=== PATIENT | female | born 1940 | race Caucasian/White ===

== ENCOUNTER 2022-05-31 08:58 | Outpatient (CLI) | payer MEDICARE, BC, SELFPAY ==
[2022-05-31 09:59] LABS: Cholesterol* 154 mg/dL (90-199); HDL Cholesterol* 75 mg/dL (>=50); LDL Cholesterol Calculated 67 mg/dL (<100); Triglycerides* 60 mg/dL (40-149)
== END 2022-05-31 08:59 | disposition home or self-care (01) ==
PROVIDERS: PCP Internal Medicine; Visit Provider Internal Medicine
DX: E78.5 Hyperlipidemia, unspecified (principal); I10 Essential (primary) hypertension
CPT/HCPCS: 80061

== ENCOUNTER 2023-02-21 07:20 | Outpatient (CLI) | payer MEDICARE, BC, SELFPAY | END 2023-02-21 07:21 | disposition home or self-care (01) | LOC: NFLDREF 22:10 | PROVIDERS: PCP Internal Medicine; Referring Provider Internal Medicine; Visit Provider Internal Medicine | DX: I10 Essential (primary) hypertension (principal); E78.9 Disorder of lipoprotein metabolism, unspecified; M85.80 Other specified disorders of bone density and structure, unspecified site | CPT/HCPCS: 80048; 80061; 82306 ==

== ENCOUNTER 2023-07-26 10:40 | Outpatient (CLI) | payer MEDICARE, BC, SELFPAY ==
[2023-07-26 10:46] VITALS: BP 134/74; PULSE 73; RESP 16; O2SAT 95
[2023-07-26] MEDS: TETRACAINE 0.5% OPHTH 1 DROP EYE-LEFT ×3 (10:49→11:32)
[2023-07-26] MEDS: BRIMONIDINE TARTRATE 0.2% OPHTH 1 DROP EYE-LEFT ×2 (10:50→11:42)
--- NOTE | 2023-07-26 12:02 | P.OPTPRC_ITS ---
Procedure Note Date of procedure: 07/26/23 Will [facility] bill your pro fee for this procedure?: Yes Procedure Description: SURGEON: Zee Nails MD PREOPERATIVE DIAGNOSIS: Posterior capsular opacity, left eye POSTOPERATIVE DIAGNOSIS: Posterior capsular opacity, left eye PROCEDURE: YAG laser capsulotomy, left eye ANESTHESIA: Topical. ESTIMATED BLOOD LOSS: None PATHOLOGY SPECIMEN: None COMPLICATIONS: None INDICATIONS: See consult note for details. The risks, benefits and alternatives of the procedure were explained to the patient, who elected to proceed and signed informed consent to do so. PROCEDURE: The patient was brought to the pre-holding area where the left eye was identified as the operative eye. I placed my initials above this eye. The patient received 2 sets of 1 drop of 0.5% tetracaine and 1 drop of 1% tropicamide. They also received 1 drop of 0.2% brimonidine. They received 1 drop of 0.5% tetracaine immediately prior to bringing them back for the procedure. The patient was then brought to the procedure room where the left eye was again identified as the operative eye. A YAG Jeff capsulotomy lens was placed on the eye. The laser was administered using a total number of 14 shots with an energy of 2.4 mJ per shot for a total energy of 34 mJ. The patient tolerated the procedure well. DISPOSITION: The patient was taken back to the pre-holding area and given 1 drop of 0.2% brimonidine in the left eye. They were discharged to home in stable condition. The patient was instructed to call me or go to the emergency department with any sudden change, including dramatic loss of vision, severe pain in the eye or eyebrow region, nausea, or vomiting. The patient was instructed to use the 0.2% brimonidine 1 drop 2 times a day in the left eye for 1 week. The patient will follow up in the clinic in 1-2 weeks
== END 2023-07-26 11:43 | disposition home or self-care (01) ==
LOC: EYE PRC 10:40
PROVIDERS: PCP Internal Medicine; Visit Provider Ophthalmology
DX: H26.9 Unspecified cataract (principal)
CPT/HCPCS: 66821; A9270

== ENCOUNTER 2024-03-05 07:25 | Outpatient (CLI) | payer MEDICARE, BC, SELFPAY ==
--- OUTSIDE RECORDS SUMMARY | 2024-03-06 09:28 | XMS_ITS | Clinical Summary ---
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 30 tablet 0 07/31/2012 Active aspirin (ECOTRIN) 81 mg enteric coated tablet Take 1 tablet by mouth once daily. 0 09/03/2015 Active Active Problems Problem Noted Date Diagnosed Date Colon polyp 07/31/2012 Overview: Colonoscopy 07/2012 polyps repeat in 3 years Colonoscopy 08/2015 severe diverticular disease, difficult to pass scope, recommend CT colonography in the future Personal history of colonic polyps 07/31/2012 Diverticulosis of colon (without mention of hemo rrhage) 07/31/2012 Social History Tobacco Use Types Packs/Day Years Used Date Smoking Tobacco: Former Comments:quit twenty years a go Alcohol Use Standard Drinks/Week Comments Not Asked 0 (1 standard drink = 0.6 oz pur e alcohol) Sex and Gender Information Value Date Recorded Sex Assigned at Not on file Gender Identity Not on file Sexual Orientation Not on file Obstetrics History Last Filed Vital Signs Vital Sign Reading Time Taken Comments Blood Pressure 121/67 09/03/2015 11:42 AM 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 Pulse 63 09/03/2015 11:42 AM 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 Temperature - - Respiratory Rate - - Oxygen Saturation 99% 09/03/2015 11:42 AM 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
--- OUTSIDE RECORDS SUMMARY | 2024-03-06 09:28 | XMS_ITS ---
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 Procedure Estimated Blood Loss Check Surgery Details section. Procedure Findings Check Surgery Details section. Procedure Specimens Taken Check Surgery Details section.
--- OUTSIDE RECORDS SUMMARY | 2024-03-06 09:28 | XMS_ITS | Referral Summary ---
Author Name Unknown Organization [facility] Address [address] [place] [address] Care Team Providers Care Health Care Legal Assistant Name Role Phone Elsewhere, Pcp Primary Care Provider Unavailabl e Source Comments Patient records contain information from all sites at [facility]. For routine questions regarding patient records, call [phone] during business hours, M-F 8:00 AM - 5:00 PM Central Time. Record requests for emergency care only can be directed to [phone] at any time.[facility] Allergies Active Allergy Reactions Criticality Noted Date Comments Adhesive Tape-Silicones Rash Low 01/03/2019 Iodinated Contrast Media Renal Failure,Cough,Hives (Reselect Reaction) 07/28/2009 Allergic to contrast dye for Cat scan Gadodiamide Hives (Reselect Reaction) Medium 02/18/2020 Medications Medication Sig Dispensed Refills Start Date End Date Status losartan-hydroCHLOROt hiazide (HYZAAR) 50-12.5 mg per tablet Take 1 tablet by mouth daily. 3 03/27/2019 Active alendronate (FOSAMAX) 35 mg tablet Take 35 mg by mouth once a week. On Saturdays. 3 05/06/2019 Active calcium carbonate-vitamin D3 500 mg-10 mcg (400 unit) tablet Take 1 tablet by mouth daily. Active zzjdqkktyyur-Hc-qtak- minerals tablet Take 1 tablet by mouth daily. Active sennosides-docusate sodium (SENOKOT-S) 8.6-50 mg per tablet Take 1 tablet by mouth 2 (two) times a day. Take while requiring narcotics. Hold for diarrhea. 07/19/2021 Active ibuprofen (ADVIL,MOTRIN) 200 mg tablet Take 1 tablet (200 mg total) by mouth daily as needed for pain. HOLD for 2 doays after surgery 07/20/2021 Active sennosides-docusate sodium (SENOKOT-S) 8.6-50 mg per tablet Take 1 tablet by mouth 2 (two) times a day. Use while taking oxycodone 01/31/2022 Active atorvastatin (LIPITOR) 20 mg tablet Take 20 mg by mouth every other day. 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 Trigger Finger Thumb Right 06/29/2019 Osteoporosis 05/30/2019 Cancer Breast Personal History 05/30/2019 Graves Disease Personal History 05/30/2019 Polyp Colon Personal History 07/31/2012 Hypertension 05/29/2009 Polyp Colon 05/29/2009 Resolved Problems Problem Noted Date Diagnosed Date Resolved Date Polymyalgia Rheumatica 05/30/201905/30 Immunizations Name Administration Dates Next Due H1N1 All Forms 09/17/2009 Td (Adult), adsorbed 07/18/2005 Social History Tobacco Use Types Packs/Day Years Used Date Smoking Tobacco: Never Smokeless Tobacco: Never Alcohol Use Standard Drinks/Week Comments Yes 0 (1 standard drink = 0.6 oz pur e alcohol) rarely Humiliation, Afraid, Rape, and Kick questionnair e Answer Date Recorded Within the last year, have y ou been afraid of your partner or ex-partner? No 01/18/2022 Within the last year, have y ou been humiliated or emotionally abused in other ways by your partner or ex-partner? No Within the last year, have y ou been kicked, hit, slapped, or otherwise physically hurt by your partner or ex-partner? No 01/18/2022 Within the last year, have y ou been raped or forced to have any kind of sexual activity by your partner or ex-partner? No 01/18/2022 Social Connection and Isolat ion Panel [NHANES] Answer Date Recorded In a typical week, how many times do you talk on the phone with family, friends, or neighbors? Once a week 01/18/2022 How often do you get togethe r with friends or relatives? Once a week 01/18/2022 How often do you attend chur ch or mormon services? Never 01/18/2022 Do you belong to any clubs o r organizations such as jehovah's witness groups, unions, fraternal or athletic groups, or school groups? Yes 01/18/2022 How often do you attend meet ings of the clubs or organizations you belong to? More than 4 times per year 01/18/2022 Are you , , di vorced, , never , or living with a partner? 01/18/2022 AUDIT-C Answer Date Recorded Q1: How often do you have a drink containing alc ohol? Monthly or less 01/18/2022 Q2: How many drinks containi ng alcohol do you have on a typical day when you are drinking? 1 or 2 01/18/2022 Q3: How often do you have si x or more drinks on one occasion? Never 01/18/2022 Overall Financial Resource Strain (CARDIA) Answe r Date Recorded How hard is it for you to pa y for the very basics like food, housing, medical care, and heating? Not hard at all 01/18/2022 [facility] - Occupational Stress Questionnaire Answer Date Recorded Do you feel stress - tense, restless, nervous, or anxious, or unable to sleep at night because your mind is troubled all the time - these days? Only a little 01/18/2022 Exercise Vital Sign Answer Date Recorde d On average, how many days pe r week do you engage in moderate to strenuous exercise (like a brisk walk)? 7 days 01/18/2022 On average, how many minutes do you engage in exercise at this level? 60 min 01/18/2022 Hunger Vital Sign Answer Date Recorded Within the past 12 months, y ou worried that your food would run out before you got the money to buy more. Never true 01/19/20 Within the past 12 months, t he food you bought just didn't last and you didn't have money to get more. Never true 01/18/2022 PRAPARE - Transportation Answer Date Re corded In the past 12 months, has l ack of transportation kept you from medical appointments or from getting medications? No 12/29 In the past 12 months, has l ack of transportation kept you from meetings, work, or from getting things needed for daily living? No 01/18/2022 Housing Stability Vital Sign Answer Benito e Recorded In the last 12 months, was t here a time when you were not able to pay the mortgage or rent on time? No 01/18/2022 In the last 12 months, how many places have you lived? 1 01/18/2022 In the last 12 months, was t here a time when you did not have a steady place to sleep or slept in a custodial (including now)? No 01/18/2022 Nutrition Answer Date Recorded Nutrition: EVOO Fat Source No 01/18 On average, how many serving s of fruits and vegetables do you eat per day (serving size is equal to 1 cup or approximately the size of a tennis ball)? 2-3 01/18/2022 Dental Answer Date Recorded Dental: Regular Dentist Yes 12/30/19 Employment Answer Date Recorded Employment status Retired 01/18/2022 Education Answer Date Recorded What is the highest level of school you have completed or the highest degree you have received? Bachelor's degree (e.g., BA, AB, BS) 05/23/2019 Sex and Gender Information Value Date Recorded Sex Assigned at Female 07/24/2021 8:45 AM CDT Gender Identity Female 06/25/2019 3:37 PM CDT Sexual Orientation Straight 06/25/2019 3: 37 PM CDT Last Filed Vital Signs Vital Sign Reading Time Taken Comments Blood Pressure 133/61 01/31/2022 3:57 PM CDT Pulse 72 01/31/2022 3:57 PM CDT Temperature 36.9 ??C (98.42 ??F) 01/31/2022 3:17 PM C DT Respiratory Rate 16 01/31/2022 3:17 PM CDT Oxygen Saturation 98% 01/31/2022 3:17 PM CDT Inhaled Oxygen Concentration - - Weight 62.2 kg (137 lb 2 oz) 06/09/2022 8:12 AM CDT Height 162.2 cm (5' 3.86) 06/09/2022 8:12 AM CD T Body Mass Index 23.64 06/09/2022 8:12 AM CDT Plan of Treatment Not on file Medical Devices Implanted Type Area Superintendent Track Device Identifier Shelf Expiration Date Model / Serial / Lot Saline Breast Implant Implanted:Qty: 1 on 01/31/2022 by Carlyn Cornelius M.D., Ph.D. at [facility] Breast Implant [employer] [id number] / [id number] Saline Breast Implant Implanted:Qty: 1 on 01/31/2022 by Carlyn Cornelius M.D., Ph.D. at [facility] Breast Implant [employer] [id number] / [id number] Explanted Type Area Superintendent Track Device Identifier Shelf Expiration Date Model / Serial / Lot Breast Implant Explanted:Qty : 1 on 01/31/2022 at [facility] Breast Implant Right: Breast Exp Brst Ntr Geno Mxt Rnd 300cc - [id number] - [id number] Implanted:Qty : 1 on 07/19/2021 by Carlyn Cornelius M.D., Ph.D. at [facility] Explanted:Qty : 1 on 01/31/2022 at [facility] Breast Implant Left: Breast [employer] 02/18/2025 [id number] 1-[id number] / [id number] / Procedures Procedure Name Priority Date/Time Associated Diagnosis Comments COLONOSCOPY Routine 03/09/2021 10:45 AM CDT Polyp Colon Personal History CT COLONOGRAPHY SCREENING WITHOUT IV CONTRAST RAD - Routine (most inpatients and all outpatients) 03/09/2021 7:55 AM CDT Procedure And Treatment Not Carried Out For Other Reasons Polyp Colon Personal History CREATININE WITH EGFR, S/P Routine 03/08/2021 11:06 AM CDT Polyp Colon Personal History from Last 3 Months or Most Recently Relevant to Health Maintenance Results * Colonoscopy (03/09/2021 10:45 AM CDT) 03/09/2021 10:4 5 AM CDT Impressions [facility] - 03/09/2021 11:41 AM CDT Post-op Diagnoses: ? - Preparation of the colon was fair. ? - Diverticulosis in the entire examined colon. No rectosigmoid polyp ? noted on multiple passes through the area. ? - One 2 mm polyp in the cecum, removed with a cold biopsy forceps. ? Resected and retrieved. Narrative [facility] - 03/09/2021 11:41 AM CDT [facility] GI GI Patient Name: Mandy Bazan Date of : 1940 Age: 80 Gender: Female Procedure Date: 03/09/2021 Procedure: ? Colonoscopy Providers: ? Lawrence Mancilla MD Referring Provider: ?Ciaar Perez MD Pre-op Diagnoses: ?Abnormal virtual colonoscopy Recommendation: ? - Await pathology results. Propofol for future exams Findings: ? Multiple diverticula were found in the entire colon. Redundent ? rectosigmoid junction. No polyp noted on multiple passes. ? A 2 mm polyp was found in the cecum. The polyp was sessile. The polyp ? was removed with a cold biopsy forceps. Resection and retrieval were ? complete. Procedural Details: ? The patient was seen, evaluated, history reviewed, airway and heart-lung ? exams were performed by licensed provider and were satisfactory for ? planned level of sedation care. ? The risks, benefits and alternatives for the procedure and sedation were ? discussed and informed consent was obtained. A procedural pause was ? conducted in the presence of assisting personnel to verify the correct ? patient identity and procedure to be performed. Throughout the ? procedure, the patient's blood pressure, pulse, and oxygen saturations ? were monitored continuously. The Pediatric Colonoscope was introduced ? under direct vision through the anus and advanced to the cecum, ? identified by appendiceal orifice and ileocecal valve. The colonoscopy ? was performed without difficulty. The patient tolerated the procedure ? fairly well. The quality of the bowel preparation was fair. The quality ? of the bowel preparation was evaluated using the BBPS ([place] Bowel ? Preparation Scale) with scores of: Right Colon = 1 (portion of mucosa ? seen, but other areas not well seen due to staining, residual stool ? and/or opaque liquid), Transverse Colon = 2 (minor amount of residual ? staining, small fragments of stool and/or opaque liquid, but mucosa seen ? well) and Left Colon = 2 (minor amount of residual staining, small ? fragments of stool and/or opaque liquid, but mucosa seen well). The ? total BBPS score equals 5. The quality of the bowel preparation was fair. Estimated Blood Loss: ?Estimated blood loss was minimal. Complications: ? No immediate complications. Sedation: ? Moderate (conscious) sedation was administered by the endoscopy nurse ? and supervised by the endoscopist. The following parameters were ? monitored: oxygen saturation, heart rate, blood pressure, and response ? to care. Total physician intraservice time was 37 minutes. Attending Participation: I personally performed the entire procedure. Lawrence Mancilla MD 03/09/2021 11:40:57 AM This report has been signed electronically. Number of Addenda: 0 Ciara Perez M.D. GI PROCEDURE ORDERAB LES COLÓN PROVATION NA * CT Colonography Screening without IV Contrast (03/09/2021 7:55 AM CDT) Anatomical Region Laterality Modality Abdomen, Pelvis, Abdominal R ST LOS, Abdominal ARZ LOS, Abdominal FLA LOS N/A Computed Tomograp hy, Computed Tomography Impressions 03/09/2021 8:58 AM CDT Nodular fold at the rectosigmoid junction which could represent a 12 mm polyp. The case was discussed with Dr. Olivares who requested that the patient go to same day colonoscopy given the distal location of this possible polyp. Narrative 03/09/2021 8:58 AM CDT EXAM: ??CT COLONOGRAPHY SCREENING WITHOUT IV CONTRAST FINDINGS: COLONIC FINDINGS: ??Colon exam is POSITIVE: ??There is a 12 mm area of nodularity on one of these results at the rectosigmoid junction which could represent a polyp. Otherwise no polyps or masses throughout the remainder of the colon. Colonic diverticulosis. EXTRACOLONIC FINDINGS: INCIDENTAL: ?? Bilateral breast implants. The left implant is collapsed and contains air. Degenerative changes in the lumbar spine and sacroiliac joints. TECHNIQUE: ??Low-dose CT images performed in multiple positions after colonic insufflation. Preparation: ??Satisfactory Dose: ??Low IV contrast material: ??Not administered Glucagon: ??1mg administered subcutaneously Complications: ??None Exam Codes: ??C2; E2 Ciara Perez M.D. IMG CT PROCEDURES * (ABNORMAL) Creatinine with Estimated GFR (03/08/2021 11:06 AM CDT) Creatinine 1.02 0.59 - 1.04 mg/dL 03/08/2021 11:39 AM CDT CNFL eGFR-Black/Afric an Lithuanian 60 >=60 mL/min/BSA 03/08/2021 11:39 AM CDT [facility] Comment: ----ADDITIONAL INFORMATION---- Estimated GFR calculated using the 2009 CKD_EPI creatinine equation. eGFR Non-Black/Angi n Lithuanian 52(L) >=60 mL/min/BSA 03/08/2021 11:39 AM CDT [facility] Comment: ----ADDITIONAL INFORMATION---- Estimated GFR calculated using the 2009 CKD_EPI creatinine equation. Blood (Blood, Venous) 03/08/2021 11:06 AM CDT 03/08/2021 11:06 AM CDT Ciara Perez M.D. 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 Expl anation Advance Directives 06/26/2023 12:18 PM Jesús Stokes rperFcatrachitatequila Bazan HCPOA/ADVOCATE/AGENT/R EPRESENTATIVE/SURROGAT E Advance Directives 01/31/2022 9:24 AM HCPOA /ADVOCATE/AGENT/R EPRESENTATIVE/SURROGAT E * Full Code (Latest Code Status on File) Date Activated Date Inactivated Comments 07/19/2021 6:03 PM 07/20/2021 7:08 PM Question Answer Comments Full Code: Not Discussed Due to: Not medically appropriate Healthcare Agents on File Name Relationship Healthcare Agent Relationship Communication Jesús Bazan Son Health Care Agent Harrison Bazan Son First Alternate Health Care Agent [email or web address] Care Teams Health Care Legal Assistant Relationship Specialty Start Date End Date Elsewhere, Pcp PCP - General Internal Medicine 01/31/22
--- OUTSIDE RECORDS SUMMARY | 2024-03-06 09:28 | XMS_ITS | Clinical Summary ---
Author Name Unknown Organization [facility] Address [address] [place] [address] Care Team Providers Care Crew Scheduler Name Role Phone Elsewhere, Pcp Primary Care Provider Unavailabl e Source Comments Patient records contain information from all sites at [facility]. For routine questions regarding patient records, call [phone] during business hours, M-F 8:00 AM - 5:00 PM Central Time. Record requests for emergency care only can be directed to [phone] at any time.[facility] Allergies Active Allergy Reactions Criticality Noted Date [...] Take 1 tablet by mouth daily. Active crzuzgmmkfoy-Xp-eraa- minerals tablet Take 1 tablet by mouth [...] often do you attend chur ch or yarsanism services? Never 01/18/2022 Do you belong to any clubs o r organizations such as zoroastrianism groups, unions, fraternal or athletic groups, or [...] and heating? Not hard at all 01/18/2022 [facility] - [...] place to sleep or slept in a [place] health care facility (including now)? No 01/18/2022 Nutrition Answer Date [...] 06/09/2022 8:12 AM CDT Plan of Treatment Health Maintenance Due Date Last Done Comments Office Visit for Blood Press ure Check / Re-check 1940 Potassium Level 1940 Sodium Level 1940 Pneumococcal vaccine (65+ ye ars) (2 of 2 - PPSV23 or PCV20) 10/05/2016 10/05/2015 Creatinine Level (Kidney Fun ction Test) 03/08/2022 03/08/2021, 09/25/2020 Depression Screening (Annual PHQ-2) 10/30/2023 Fall Risk Screen (Annual) 10/30/2023 COVID-19 Vaccine (2022- 4 season) 2023 08/24/2023, 03/21/2023, 08/04/2022, Additional history exists DTaP,Tdap,and Td Vaccines (3 - Td or Tdap) 02/22/2031 02/22/2021, 06/01/2011, 05/19/2010, Additional history exists Zoster Vaccines Completed 11/12/2019, 08/21/2019 CT Colonography Discontinued 03/09/2021 Colonoscopy Discontinued 03/09/2021, 03/09/2021 Colorectal Cancer Surveillance Discontinued Influenza Vaccine Completed 09/06/2023, , 08/12/2021, Additional history exists Cologuard Discontinued Medical Devices Implanted Type Area Gaming Surveillance Observer Device Identifier Shelf Expiration Date Model / Serial / Lot Saline Breast Implant Implanted:Qty: 1 on 01/31/2022 by Carlyn Cornelius M.D., Ph.D. at [facility] Breast Implant [employer] 350-1640 / [id number] Saline Breast Implant Implanted:Qty: 1 on 01/31/2022 by Carlyn Cornelius M.D., Ph.D. at [facility] Breast Implant [email or web address] 350-1655 / [id number] Explanted Type Area Gaming Surveillance Observer Device Identifier Shelf Expiration Date Model / Serial / Lot Breast Implant Explanted:Qty : 1 on 01/31/2022 at [facility] Breast Implant Right: Breast Exp Brst Ntr Geno Mxt Rnd 300cc - [id number] - [id number] Implanted:Qty : 1 on 07/19/2021 by Carlyn Cornelius M.D., Ph.D. at [facility] Explanted:Qty : 1 on 01/31/2022 at [facility] Breast Implant Left: Breast [employer] 02/18/2025 133S-MX-1 1-T / [id number] / Procedures Procedure Name Priority Date/Time Associated [...] CDT) 03/09/2021 10:4 5 AM CDT Impressions [facility] - 03/09/2021 11:41 AM CDT Post-op Diagnoses: ? - Preparation of the colon was fair. ? - Diverticulosis in the entire examined colon. No rectosigmoid polyp ? noted on multiple passes through the area. ? - One 2 mm polyp in the cecum, removed with a cold biopsy forceps. ? Resected and retrieved. Narrative [facility] - 03/09/2021 11:41 AM CDT Gonda 9 GI GI Patient Name: Mandy Bazan Date of : 1940 Age: 80 Gender: Female Procedure Date: 03/09/2021 Procedure: ? Colonoscopy Providers: ? Lawrence Mancilla MD Referring Provider: ?Ciara Perez MD Pre-op Diagnoses: ?Abnormal virtual colonoscopy [...] bowel preparation was evaluated using the BBPS ([place] Bowel ? Preparation Scale) with scores of: [...] 03/08/2021 11:39 AM CDT CNFL eGFR-Black/Afric an Maltese 60 >=60 mL/min/BSA 03/08/2021 11:39 AM CDT CNFL Comment: ----ADDITIONAL INFORMATION---- Estimated GFR calculated using the 2009 CKD_EPI creatinine equation. eGFR Non-Black/Angi n Maltese 52(L) >=60 mL/min/BSA 03/08/2021 11:39 AM CDT CNFL Comment: ----ADDITIONAL INFORMATION---- Estimated GFR calculated using the 2009 CKD_EPI creatinine equation. Blood (Blood, Venous) 03/08/2021 11:06 AM CDT 03/08/2021 11:06 AM CDT Ciara Perez M.D. 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
== END 2024-03-05 07:26 | disposition home or self-care (01) ==
LOC: NFLDREF 03-06 09:25
PROVIDERS: PCP Internal Medicine; Referring Provider Internal Medicine; Visit Provider Internal Medicine
DX: E78.9 Disorder of lipoprotein metabolism, unspecified (principal); I10 Essential (primary) hypertension; M85.80 Other specified disorders of bone density and structure, unspecified site
CPT/HCPCS: 80048; 80061; 82306

== ENCOUNTER 2024-04-17 12:41 | Outpatient (CLI) | payer MEDICARE, BC, SELFPAY ==
--- OUTSIDE RECORDS SUMMARY | 2024-04-17 12:44 | XMS_ITS | Clinical Summary ---
Author Organization [facility] Address [address] [place] [address] Care Team Providers Care Court Abstractor Name Role Phone Elsewhere, Pcp Primary Care Provider Unavailabl e Source Comments Patient records contain information from all sites at [facility]. For routine questions regarding patient records, call [phone] during business hours, M-F 8:00 AM - 5:00 PM Central Time. Record requests for emergency care only can be directed to [phone] at any time.[facility] Allergies Active Allergy Reactions Criticality Noted Date [...] Take 1 tablet by mouth daily. Active ehgdxylilffq-Ro-jpnl- minerals tablet Take 1 tablet by mouth [...] often do you attend chur ch or zoroastrian services? Never 01/18/2022 Do you belong to any clubs o r organizations such as caodaism groups, unions, fraternal or athletic groups, or [...] heating? Not hard at all 01/18/2022 [facility] - Occupational Stress [...] place to sleep or slept in a nursing home (including now)? No 01/18/2022 Nutrition Answer Date Recorded Nutrition: EVOO Fat Source No 01/18 On average, how many serving s of fruits and vegetables do you eat per day (serving size is equal to 1 cup or approximately the size of a tennis ball)? 2-3 01/18/2022 Dental Answer Date Recorded Dental: Regular Dentist Yes 12/30/19 21 Employment Answer Date Recorded Employment status Retired [...] Cologuard Discontinued Medical Devices Implanted Type Area Distribution Transformer Assembler Device Identifier Shelf Expiration Date Model / Serial / Lot Saline Breast Implant Implanted:Qty: 1 on 01/31/2022 by Carlyn Cornelius M.D., Ph.D. at [facility] Breast Implant [employer] 350-1640 / [id number] Saline Breast Implant Implanted:Qty: 1 on 01/31/2022 by Carlyn Cornelius M.D., Ph.D. at [facility] Breast Implant [employer] 350-1655 / [id number] Explanted Type Area Distribution Transformer Assembler Device Identifier Shelf Expiration Date Model / Serial / Lot Breast Implant Explanted:Qty : 1 on 01/31/2022 at [facility] Breast Implant Right: Breast Exp Brst Ntr Geno Mxt Rnd 300cc - [id number] - [id number] Implanted:Qty : 1 on 07/19/2021 by Carlyn Cornelius M.D., Ph.D. at [facility] Explanted:Qty : 1 on 01/31/2022 at [facility] Breast Implant Left: Breast [employer] 02/18/2025 133S-MX-1 1-T / [id number] / Procedures Procedure Name Priority Date/Time Associated [...] CDT) 03/09/2021 10:4 5 AM CDT Impressions [facility] - 03/09/2021 11:41 AM CDT Post-op Diagnoses: ? - Preparation of the colon was fair. ? - Diverticulosis in the entire examined colon. No rectosigmoid polyp ? noted on multiple passes through the area. ? - One 2 mm polyp in the cecum, removed with a cold biopsy forceps. ? Resected and retrieved. Narrative [facility] - 03/09/2021 11:41 AM CDT Gonda 9 [...] bowel preparation was evaluated using the BBPS ([place] Bowel ? Preparation Scale) with scores of: [...] Ciara Perez M.D. GI PROCEDURE ORDERAB LES [place] [employer]OVATION NA * CT Colonography Screening without [...] 03/08/2021 11:39 AM CDT CNFL eGFR-Black/Afric an Egyptian 60 >=60 mL/min/BSA 03/08/2021 11:39 AM CDT CNFL Comment: ----ADDITIONAL INFORMATION---- Estimated GFR calculated using the 2009 CKD_EPI creatinine equation. eGFR Non-Black/Angi n Egyptian 52(L) >=60 mL/min/BSA 03/08/2021 11:39 AM CDT CNFL Comment: ----ADDITIONAL INFORMATION---- Estimated GFR calculated using the 2009 CKD_EPI creatinine equation. Blood (Blood, Venous) 03/08/2021 11:06 AM CDT 03/08/2021 11:06 AM CDT Ciara Perez M.D. 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
--- OUTSIDE RECORDS SUMMARY | 2024-04-17 12:44 | XMS_ITS | Referral Summary ---
Author Organization [facility] Address [address] [place] [address] Care Team Providers Care Cyanide Pot Tender Name Role Phone Elsewhere, Pcp Primary Care Provider Unavailabl e Source Comments Patient records contain information from all sites at [facility]. For routine questions regarding patient records, call [phone] during business hours, M-F 8:00 AM - 5:00 PM Central Time. Record requests for emergency care only can be directed to [phone] at any time.[facility] Allergies Active Allergy Reactions Criticality Noted Date [...] Take 1 tablet by mouth daily. Active dmgtqvnirbne-Vk-nnhy- minerals tablet Take 1 tablet by mouth [...] often do you attend chur ch or alevism services? Never 01/18/2022 Do you belong to any clubs o r organizations such as mosque groups, unions, fraternal or athletic groups, or [...] and heating? Not hard at all 01/18/2022 [facility] - Occupational Stress [...] place to sleep or slept in a [facility] (including now)? No 01/18/2022 Nutrition Answer Date [...] on file Medical Devices Implanted Type Area Fish Warden Device Identifier Shelf Expiration Date Model / Serial / Lot Saline Breast Implant Implanted:Qty: 1 on 01/31/2022 by Carlyn Cornelius M.D., Ph.D. at [facility] Breast Implant [employer] 350-1640 / [id number] Saline Breast Implant Implanted:Qty: 1 on 01/31/2022 by Carlyn Cornelius M.D., Ph.D. at [facility] Breast Implant [employer] 350-1655 / [id number] Explanted Type Area Fish Warden Device Identifier Shelf Expiration Date Model / Serial / Lot Breast Implant Explanted:Qty : 1 on 01/31/2022 at [facility] Breast Implant Right: Breast Exp Brst Ntr Geno Mxt Rnd 300cc - [id number] - [id number] Implanted:Qty : 1 on 07/19/2021 by Carlyn Cornelius M.D., Ph.D. at [facility] Explanted:Qty : 1 on 01/31/2022 at [facility] Breast Implant Left: Breast [employer] 02/18/2025 133S-MX-1 1-T / [id number] / Procedures Procedure Name Priority Date/Time Associated [...] CDT) 03/09/2021 10:4 5 AM CDT Impressions [facility] - 03/09/2021 11:41 AM CDT Post-op Diagnoses: ? - Preparation of the colon was fair. ? - Diverticulosis in the entire examined colon. No rectosigmoid polyp ? noted on multiple passes through the area. ? - One 2 mm polyp in the cecum, removed with a cold biopsy forceps. ? Resected and retrieved. Narrative [facility] - 03/09/2021 11:41 AM CDT Gonda [...] bowel preparation was evaluated using the BBPS ([place] Bowel ? Preparation Scale) with scores of: [...] 03/08/2021 11:39 AM CDT CNFL eGFR-Black/Afric an Equatorial Guinean 60 >=60 mL/min/BSA 03/08/2021 11:39 AM CDT CNFL Comment: ----ADDITIONAL INFORMATION---- Estimated GFR calculated using the 2009 CKD_EPI creatinine equation. eGFR Non-Black/Angi n Equatorial Guinean 52(L) >=60 mL/min/BSA 03/08/2021 11:39 AM CDT CNFL Comment: ----ADDITIONAL INFORMATION---- Estimated GFR calculated using the 2009 CKD_EPI creatinine equation. Blood (Blood, Venous) 03/08/2021 11:06 AM CDT 03/08/2021 11:06 AM CDT Ciara Perez M.D. 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
--- OUTSIDE RECORDS SUMMARY | 2024-04-17 12:44 | XMS_ITS ---
Author Organization [facility] Address [address] [place] [address] Care Team Providers Care Pricing Intern Name Role Phone Unavailable Unavailable Unavailable Surgery Details Not on file Complications Check Surgery Details section. Procedure Estimated Blood Loss Check Surgery Details section. Procedure Findings Check Surgery Details section. Procedure Specimens Taken Check Surgery Details section.
--- OUTSIDE RECORDS SUMMARY | 2024-04-17 12:44 | XMS_ITS | Clinical Summary ---
Author Organization [facility] Address [place], [place] [address] Care Team Providers Care Coloring Room Man Name Role Phone Unavailable Primary Care Provider [...] Comments Blood Pressure 121/67 09/03/2015 11:42 AM CITY LETTER CARRIER Pulse 63 09/03/2015 11:42 AM CITY LETTER CARRIER Temperature - - Respiratory Rate - - Oxygen Saturation 99% 09/03/2015 11:42 AM CITY LETTER CARRIER Inhaled Oxygen Concentration - - Weight - [...]
--- NOTE | 2024-04-17 13:00 | CRLHL7_ITS ---
For Patients: As a result of the Century Cures Act, medical imaging exams and procedure reports are released immediately into your electronic medical record. You may view this report before your referring provider. If you have questions, please contact your health care provider. DXA BONE MINERAL DENSITY STUDY Reason for exam: Osteoporosis. Current height (in): 65. Weight (lb): 145. Menopause age: 50. Ethnicity: White. 1. Have you had a previous hip or vertebral fracture? No. 2. Have you had any fractures during your adult life which did not result from significant trauma (e.g., auto accident)? No. 3. Did either of your parents have a hip fracture? No. 4. Do you smoke? No. 5. Have you ever taken Glucocorticoids? No. 6. Do you have rheumatoid arthritis? Yes. 7. Do you have secondary osteoporosis? No. 8. Do you drink 3 or more alcoholic drinks per day? No. 9. Are you being treated for osteoporosis? Yes. 10. Have you ever taken any of the following medications: Actonel, Evista, Fosamax, Miacalcin, Reclast, Boniva, Forteo, HRT (i.e., estrogen/hormone therapy), Protelos, Prolia, Vitamin D, Calcium, other ??? please specify. ANSWER: Yes, Fosamax, Vitamin D, and calcium. 11. Do you have any of the following medical conditions: Anorexia or bulimia, asthma or emphysema, end stage renal disease, hyperparathyroidism, any seizure disorders, cancer, inflammatory bowel diseases, hysterectomy, other ??? please specify. ANSWER: No. 12. What was your maximum height (inches)? 66. 13. Do you perform weight bearing exercise regularly? Yes. 14. Do you regularly consume dairy products? No. 15. Do you drink caffeinated beverages? No. 16. At what age did your period start? 15. 17. Are you premenopausal? No. 18. How many full-term pregnancies have you had? 2. 19. Have you ever missed your period for more than 6 months in a row (not including or menopause)? No. TECHNIQUE: Bone mineral density study was performed using the Airspan. FINDINGS: The results of the study expressed as bone mineral density (BMD) are as follows: Lumbar spine L1 to L3: BMD: 0.831 g/cm2. T-score: -1.7. Z-score: 1.0 Neck Left: BMD: 0.704 g/cm2. T-score: -1.3. Z-score: 1.1 Right: BMD: 0.763 g/cm2. T-score: -0.8. Z-score: 1.7 Total Left: BMD: 0.930 g/cm2. T-score: -0.1. Z-score: 2.1 Right: BMD: 0.920 g/cm2. T-score: -0.2. Z-score: 2.0 IMPRESSION: Osteopenia. *Comparison exams done prior to 03/2020 were performed on different unit, [facility]aze. COMPARISON: Compared with scan of 03/23/2022, the bone mineral density has decreased by 5.9 percent at the spine and increased by 1.7 percent at the hip. Compared with scan of 02/14/2019, the bone mineral density has decreased by 10.5 percent at the spine and increased by 8.6 percent at the hip. Aubrey Reich M.D. Diagnostic Radiologist [email or web address]/[email or web address] quinn/Dictated by: Aubrey Reich MD @ 04/17/2024 2:04:00 PM (Electronically Signed)
== END 2024-04-17 12:42 | disposition home or self-care (01) ==
LOC: RAD 12:42
PROVIDERS: PCP Internal Medicine; Visit Provider Internal Medicine
DX: M81.0 Age-related osteoporosis without current pathological fracture (principal); M85.89 Other specified disorders of bone density and structure, multiple sites
CPT/HCPCS: 77080